=== PATIENT | female | born 1955 | race Caucasian/White ===

== ENCOUNTER 2016-08-26 08:44 | Day surgery (SDC) | payer MEDICAID ==
[2016-08-26] MEDS ORDERED: LACTATED RINGERS 900 ML IV ONE (10:04)
[2016-08-26] MEDS ORDERED: fentaNYL 250 MCG/5 ML VIAL IVP ONE (10:30)
[2016-08-26] MEDS ORDERED: MIDAZOLAM 2 MG/2 ML VIAL IVP ONE (10:30)
== END 2016-08-26 08:45 | disposition home or self-care (01) ==
PROC: 0DB58ZX Excision of Esophagus, Via Natural or Artificial Opening Endoscopic, Diagnostic (ICD-10-PCS; 2016-08-26)
PROC: 0DJD8ZZ Inspection of Lower Intestinal Tract, Via Natural or Artificial Opening Endoscopic (ICD-10-PCS; principal; 2016-08-26 09:45)
PROC: 0DB68ZX Excision of Stomach, Via Natural or Artificial Opening Endoscopic, Diagnostic (ICD-10-PCS; 2016-08-26 09:45)
DX: Z12.11 Encounter for screening for malignant neoplasm of colon (principal); K64.8 Other hemorrhoids; K57.30 Diverticulosis of large intestine without perforation or abscess without bleeding; K25.9 Gastric ulcer, unspecified as acute or chronic, without hemorrhage or perforation; K44.9 Diaphragmatic hernia without obstruction or gangrene; K20.9 Esophagitis, unspecified; K21.9 Gastro-esophageal reflux disease without esophagitis; Z88.0 Allergy status to penicillin; I10 Essential (primary) hypertension; J30.2 Other seasonal allergic rhinitis
CPT/HCPCS: 43239; 45378; 87081; J3010; J7120

== ENCOUNTER 2016-08-28 08:46 | Outpatient (CLI) | payer MEDICAID | END 2016-08-28 08:47 | disposition home or self-care (01) | DX: Z12.31 Encounter for screening mammogram for malignant neoplasm of breast (principal) ==

== ENCOUNTER 2016-09-30 08:00 | Outpatient (CLI) | payer MEDICAID | END 2016-09-30 08:01 | disposition home or self-care (01) | DX: I10 Essential (primary) hypertension (principal) ==

== ENCOUNTER 2016-12-29 12:48 | Emergency (ER) | payer MEDICAID ==
[2016-12-29 12:56] VITALS: BP 144/87
--- NOTE | 2016-12-29 16:11 | Ultrasound Report ---
EXAM: RIGHT LOWER EXTREMITY VENOUS ULTRASOUND EXAM DATE: 12/29/2016 03:24 PM. CLINICAL HISTORY: Swollen varicosity. COMPARISON: None. TECHNIQUE: Real-time sonographic vascular imaging was performed by the shape hand through the lower extremity utilizing both color-flow and Doppler spectral analysis. Multiple field support representative static linda ges were saved for review. FINDINGS: Common Femoral Vein (CFV): Normal. CFV-GSV Junction: Normal. Profunda Femoral Vein (PFV): Normal. Femoral Vein (FV) Prox: Normal. Femoral Vein (FV) Mid: Normal. Femoral Vein (FV) Dist: Normal. Popliteal Vein: Normal. Posterior Tibial Veins: Normal. Peroneal Veins: Normal. Contralateral Side CFV: Normal. Other: None. IMPRESSION: No evidence for deep venous thrombosis. [facility] Referring Provider Line: [phone] SITE ID: [id number]
--- NOTE | 2016-12-29 16:11 | Ultrasound Preliminary Report ---
Exam: US Duplex Ext Veins Right IMPRESSION: No evidence for deep venous thrombosis. [facility] SITE ID: [id number]
--- NOTE | 2016-12-29 16:13 | ED Physician Documentation ---
History of Present Illness - Stated complaint Stated Complaint: R LEG SWELLING,PAINFUL - Chief complaint Chief Complaint: Ext Problem - History obtained from History obtained from: Patient - History of Present Illness Timing: Today - Additonal information Additional information: 61-year-old female who has had some cosmetic procedures done on her lower extremity previously with some injection of varicose veins has developed a varicosity on the left medial portion of the calf that she remembers being present previously but she could not ever see blue under the skin. She states this area looks larger than it has previously and she was required to come to the emergency department for evaluation of this. Review of Systems Constitutional: denies: Fever Eyes: denies: Decreased vision Ears: denies: Ear pain Nose: denies: Congestion Throat: denies: Sore throat Respiratory: denies: Dyspnea, Cough GI: denies: Vomiting Skin: denies: Rash Musculoskeletal: reports: Extremity pain, Extremity swelling. 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 - Present Medications Home Medications: Ambulatory Orders Medication Instructions Recorded Confirmed 5htp 1 tab PO DAILY PRN 08/23/16 12/29/16 Acetaminophen [Tylenol Extra 2 tab PO Q4H PRN 08/23/16 12/29/16 Strength] Ascorbic Acid [Vitamin C] 1 tab PO DAILY 08/23/16 12/29/16 Aspirin 1 tab PO DAILY 08/23/16 12/29/16 Aspirin 1 tab PO DAILY PRN 08/23/16 12/29/16 Atenolol 12.5 mg PO DAILY 08/23/16 12/29/16 Cyanocobalamin (Vitamin B-12) 1 tab PO DAILY 08/23/16 12/29/16 [Vitamin B12] Ibuprofen [Motrin] 600 mg PO Q6H PRN 08/23/16 12/29/16 Triamterene/Hydrochlorothiazid 1 tab PO DAILY 08/23/16 12/29/16 [Triamterene-Hctz 75-50 mg Tab] raNITIdine [Zantac] 150 mg PO DAILY 08/23/16 12/29/16 - Allergies Allergies/Adverse Reactions: Allergies Allergy/AdvReac Type Severity Reaction Status Date / Time amlodipine Allergy Edema Verified 08/26/16 09:07 lisinopril Allergy Unknown Verified 08/26/16 09:07 Penicillins Allergy Rash Verified 08/23/16 13:31 - Social History Does the pt smoke?: No Smoking Status: Never smoker Does the pt drink ETOH?: Yes ETOH Use: Wine, Beer, Liquor Does the pt have substance abuse?: No - Immunizations Immunizations are current?: Yes - POLST Patient has POLST: No PD ED PE NORMAL - Vitals Vital signs reviewed: Yes (hypertensive) - General General: Alert and oriented X 3, No acute distress, Well developed/nourished - HEENT HEENT: Atraumatic, PERRL, EOMI - Neck Neck: Supple, no meningeal sign - Respiratory Respiratory: No respiratory distress - Derm Derm: Normal color, Warm and dry, No rash - Extremities Extremities: No deformity, Other (There is a varicosity to the right calf medially and this are is mildly tender as is the bakers cyst. She has ? of swelling to the right calf but I am not able to discern this. distal n/v intact. ) - Neuro Neuro: No motor deficit, No sensory deficit - Psych Psych: Normal mood, Normal affect Results - Vitals Vitals: Vital Signs - 24 hr 12/29/16 12:54 Temperature 36.5 C Heart Rate 69 Respiratory 16 Rate Blood Pressure 144/87 H O2 Saturation 100 Oxygen O2 Source Room air - Rads (name of study) Duplex veins right Radiology: Prelim report reviewed (Impression: No evidence for deep venous thrombosis.), EMP read indepedently, See rad report PD MEDICAL DECISION MAKING - ED course Complexity details: reviewed results, re-evaluated patient, considered differential, d/w patient ED course: 61-year-old female with swelling to the right calf and posterior pain has a varicosity that is mildly symptomatic. She does not have DVT. Departure - Departure Disposition: 01 Home, Self Care Clinical Impression: Varicose vein of leg Condition: Stable Instructions: ED Veins Varicose Follow-Up: Steve Guthrie PA-C [Primary Care Provider] - Discharge Date/Time: 12/29/16 16:21
== END 2016-12-29 16:21 | disposition home or self-care (01) ==
LOC: ED 12:48
DX: I83.91 Asymptomatic varicose veins of right lower extremity (principal); I10 Essential (primary) hypertension; K21.9 Gastro-esophageal reflux disease without esophagitis; Z79.82 Long term (current) use of aspirin
CPT/HCPCS: 99283

== ENCOUNTER 2017-09-05 07:42 | Outpatient (CLI) | payer MEDICAID ==
[2017-09-05 13:04] LABS: BASOPHILS # (AUTO) 0.1 10^3/uL (0.0-0.1); BASOPHILS % (AUTO) 0.9 %; EOSINOPHILS # (AUTO) 0.3 10^3/uL (0.0-0.7); EOSINOPHILS % (AUTO) 5.6 %; HGB - HEMOGLOBIN 14.4 g/dL (12.0-16.0); LYMPHOCYTES # (AUTO) 1.9 10^3/uL (1.5-3.5); LYMPHOCYTES % (AUTO) 34.7 %; MEAN CORPUSCULAR HEMOGLOBIN 30.8 pg (27.0-31.0); MEAN CORPUSCULAR HGB CONC 34.2 g/dL (32.0-36.0); MEAN CORPUSCULAR VOLUME 90.3 fL (81.0-99.0); MEAN PLATELET VOLUME 8.6 fL (7.9-10.8); MONOCYTES # (AUTO) 0.6 10^3/uL (0.0-1.0); MONOCYTES % (AUTO) 10.4 %; NEUTROPHILS # (AUTO) 2.7 10^3/uL (1.5-6.6); NEUTROPHILS % (AUTO) 48.4 %; PLT - PLATELET COUNT 299 10^3/uL (130-450); RED BLOOD COUNT 4.67 10^6/uL (4.20-5.40); RED CELL DISTRIBUTION WIDTH 13.6 % (12.0-15.0); WHITE BLOOD COUNT 5.6 x10^3/uL (4.8-10.8)
[2017-09-05 13:38] LABS: THYROID STIMULATING HORMONE 1.79 uIU/mL (0.34-5.60)
[2017-09-05 13:40] LABS: FREE T4 (FREE THYROXINE) 0.81 ng/dL (0.58-1.64)
[2017-09-05 13:46] LABS: ALBUMIN 4.4 g/dL (3.2-5.5); ALBUMIN/GLOBULIN RATIO 1.4 (1.0-2.2); ALKALINE PHOSPHATASE 47 IU/L (42-121); ALT ALANINE AMINOTRANSFERASE 25 IU/L (10-60); AST ASPARTATE AMINOTRANSFERASE 24 IU/L (10-42); BILIRUBIN,TOTAL 0.8 mg/dL (0.2-1.0); BUN - BLOOD UREA NITROGEN 20 mg/dL (6-20); CALCIUM 9.4 mg/dL (8.5-10.3); CARBON DIOXIDE - CO2 27 mmol/L (21-32); CHLORIDE 100 mmol/L (101-111); CHOL/HDL RATIO 2.7 (<4.4); CHOLESTEROL 161 mg/dL; CREATININE 0.7 mg/dL (0.4-1.0); GFR - MDRD 86 (>89); GLUCOSE 92 mg/dL (70-100); HDL CHOLESTEROL 59 mg/dL; LDL CHOLESTEROL,CALCULATED 81 mg/dL; LDL/HDL RATIO 1.4 (<4.4); SODIUM 136 mmol/L (135-145); TOTAL PROTEIN 7.5 g/dL (6.7-8.2); VLDL CHOLESTEROL 21 mg/dL
== END 2017-09-05 07:43 | disposition home or self-care (01) ==
LOC: LAB.N 07:42
PROVIDERS: ATTEND Family Medicine
DX: I10 Essential (primary) hypertension (principal); E03.9 Hypothyroidism, unspecified
CPT/HCPCS: 36415; 80053; 80061; 83721; 84439; 84443; 85025

== ENCOUNTER 2017-10-01 08:00 | Outpatient (CLI) | payer MEDICAID ==
[2017-10-01 19:29] LABS: BILIRUBIN,URINE NEGATIVE (NEGATIVE); GLUCOSE, URINE (UA) NEGATIVE (NEGATIVE); KETONES,URINE (UA) NEGATIVE (NEGATIVE); LEUKOCYTE ESTERASE, URINE SMALL (NEGATIVE); NITRITE,URINE NEGATIVE (NEGATIVE); OCCULT BLOOD,URINE NEGATIVE (NEGATIVE); PH,URINE 6.5 PH (5.0-7.5); PROTEIN,URINE NEGATIVE (NEGATIVE); UROBILINOGEN,URINE 0.2 (NORMAL) E.U./dL (NORMAL)
[2017-10-01 19:35] LABS: CLARITY,URINE CLEAR (CLEAR)
[2017-10-01 19:48] LABS: BACTERIA,URINE None Seen /HPF (None Seen); RBC,URINE None Seen /HPF (0-5); SQUAMOUS EPITHELIAL CELL,UR FEW Squamous (<= Few)
== END 2017-10-01 08:01 | disposition home or self-care (01) ==
LOC: LAB.R 08:00
PROVIDERS: ATTEND Family Medicine
DX: N10 Acute pyelonephritis (principal)
CPT/HCPCS: 81001; 81003; 87086

== ENCOUNTER 2017-10-25 14:53 | Emergency (ER) | payer MEDICAID ==
[2017-10-25 15:01] VITALS: BP 159/101
--- NOTE | 2017-10-25 15:02 | ED Physician Documentation ---
PD HPI NECK PAIN - Stated complaint Stated Complaint: NECK PX/SHLD PX - Chief complaint Chief Complaint: Back Pain - History obtained from History obtained from: Patient - History of Present Illness Timing - onset: Yesterday (awoke with shoulder pain that has worsened into today. 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 Some numbness in the area at times too.). No: Fever, Weakness Similar symptoms before: Diagnosis (muscle strain with nerve irritation.) Recently seen: Not recently seen Review of Systems Constitutional: denies: Fever, Chills Skin: denies: Rash, Lesions Neurologic: reports: Numbness. 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 - Present Medications Home Medications: Ambulatory Orders Medication Instructions Recorded Confirmed 5htp 1 tab PO DAILY PRN 08/23/16 12/29/16 Acetaminophen [Tylenol Extra 2 tab PO Q4H PRN 08/23/16 12/29/16 Strength] Ascorbic Acid [Vitamin C] 1 tab PO DAILY 08/23/16 12/29/16 Aspirin 1 tab PO DAILY PRN 08/23/16 12/29/16 Cyanocobalamin (Vitamin B-12) 1 tab PO DAILY 08/23/16 12/29/16 [Vitamin B12] Ibuprofen [Motrin] 600 mg PO Q6H PRN 08/23/16 12/29/16 Triamterene/Hydrochlorothiazid 1 tab PO DAILY 08/23/16 12/29/16 [Triamterene-Hctz 75-50 mg Tab] raNITIdine [Zantac] 150 mg PO DAILY 08/23/16 12/29/16 Dexamethasone [Decadron] 4 mg PO DAILY #5 tablet 10/25/17 Naproxen 375 mg PO BID #20 tablet 10/25/17 Oxycodone HCl/Acetaminophen 1 each PO Q6H PRN #20 tablet 10/25/17 [Percocet 5-325 mg Tablet] Tizanidine HCl 4 mg PO TID PRN #25 capsule 10/25/17 - Allergies Allergies/Adverse Reactions: Allergies Allergy/AdvReac Type Severity Reaction Status Date / Time amlodipine Allergy Edema Verified 08/26/16 09:07 lisinopril Allergy Unknown Verified 08/26/16 09:07 Penicillins Allergy Rash Verified 08/23/16 13:31 - Social History Does the pt smoke?: No Smoking Status: Never smoker Does the pt drink ETOH?: Yes Does the pt have substance abuse?: No - Immunizations Immunizations are current?: Yes - POLST Patient has POLST: No PD ED PE NORMAL - Vitals Vital signs reviewed: Yes - General General: Alert and oriented X 3, Well developed/nourished, Other (appears uncomfortable with shoulder pain) - Neck Neck: Supple, no meningeal sign, No adenopathy, Other (tender right suprascapular area in muscles. No rash nor sores. Shoulder itself without tenderness. ) - Derm Derm: Normal color, Warm and dry - Extremities Extremities: Other (right arm with good pulses, color and cap refill. Normal sensation and motor, but says right thumb and radial arm hurts c/w C6 area. ) Results - Vitals Vitals: Vital Signs - 24 hr 10/25/17 10/25/17 14:57 15:46 Temperature 36.1 C L Heart Rate 90 76 Respiratory 18 15 Rate Blood Pressure 159/101 H O2 Saturation 94 Oxygen O2 Source Room air PD MEDICAL DECISION MAKING - ED course Complexity details: considered differential (having radicular symptoms of pain and numbness right arm in C6 area but is tender in shoulder muscles, so I think it is muscular impingement. ), d/w patient Departure - Departure Disposition: 01 Home, Self Care Clinical Impression: Nerve compression Acute strain of neck muscle Qualifiers: Encounter type: initial encounter Qualified Code(s): S16.1XXA - Strain of muscle, fascia and tendon at neck level, initial encounter Condition: Stable Record reviewed to determine appropriate education?: Yes Instructions: ED Neck Pain No Trauma Prescriptions: Dexamethasone [Decadron] 4 mg PO DAILY #5 tablet Naproxen 375 mg PO BID #20 tablet Oxycodone HCl/Acetaminophen [Percocet 5-325 mg Tablet] 1 each PO Q6H PRN #20 tablet PRN Reason: Pain Tizanidine HCl 4 mg PO TID PRN #25 capsule PRN Reason: Spasms Comments: Heat and gentle stretching for the neck and shoulder muscles. Physical treatment such as massage and chiropractic are good. Minimize heavy lifting, push pull, overhead reaching and repetitive motion with the shoulder for several days if he can. Use naproxen and Decadron different types of anti- inflammatories over the next 5 or 6 days as directed. Add tizanidine muscle relaxant 3 times a day as needed for spasms and stiffness. Add Percocet if needed for worse pain. Recheck if not improving over the next several days to week. Discharge Date/Time: 10/25/17 15:47
[2017-10-25] MEDS ORDERED: oxyCOD/ACETAMIN 5 MG/325 MG TABLET PO STA (15:17)
[2017-10-25] MEDS ORDERED: KETOROLAC 60 MG/2 ML VIAL IM STA (15:17)
[2017-10-25] MEDS ORDERED: DEXAMETHASONE 10 MG/ML VIAL PO STA (15:17)
[2017-10-25] MEDS ORDERED: BUPIVACAINE 0.5% PF 30 ML VIAL SUBQ STA (15:17)
[2017-10-25] MEDS ORDERED: METHOCARBAMOL 500 MG TABLET PO STA (15:18)
[2017-10-25] MEDS ORDERED: CHERRY SYRUP 10 ML UDC PO ONE (15:38)
== END 2017-10-25 15:47 | disposition home or self-care (01) ==
LOC: ED 14:53
DX: S16.1XXA Strain of muscle, fascia and tendon at neck level, initial encounter (principal); X58.XXXA Exposure to other specified factors, initial encounter; G58.9 Mononeuropathy, unspecified; I10 Essential (primary) hypertension; K21.9 Gastro-esophageal reflux disease without esophagitis; Z79.82 Long term (current) use of aspirin
CPT/HCPCS: 96372; 99283; A9270

== ENCOUNTER 2018-05-04 11:15 | Emergency (ER) | payer MEDICAID ==
[2018-05-04 11:33] VITALS: BP 133/88
[2018-05-04] MEDS ORDERED: DEXAMETHASONE 10 MG/ML VIAL PO STA (12:33)
[2018-05-04] MEDS ORDERED: KETOROLAC 60 MG/2 ML VIAL IM STA (12:33)
--- NOTE | 2018-05-04 12:45 | ED Physician Documentation ---
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 Occasionally radiates down the right leg. No loss of bowel or bladder control. No IV drug use. No fevers. No trauma. Worse with movement and better with rest. Has had issues with her back before. Has not taken anything for this today other than a muscle relaxant from an old injury. Review of Systems Constitutional: denies: Fever, Chills Throat: denies: Sore throat GI: reports: Vomiting (States she vomited yesterday). 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 - Present Medications Home Medications: Ambulatory Orders Medication Instructions Recorded Confirmed 5htp 1 tab PO DAILY PRN 08/23/16 05/04/18 Acetaminophen [Tylenol Extra 2 tab PO Q4H PRN 08/23/16 05/04/18 Strength] Ascorbic Acid [Vitamin C] 1 tab PO DAILY 08/23/16 05/04/18 Aspirin 1 tab PO DAILY PRN 08/23/16 05/04/18 Cyanocobalamin (Vitamin B-12) 1 tab PO DAILY 08/23/16 05/04/18 [Vitamin B12] Triamterene/Hydrochlorothiazid 1 tab PO DAILY 08/23/16 05/04/18 [Triamterene-Hctz 75-50 mg Tab] raNITIdine [Zantac] 150 mg PO DAILY 08/23/16 05/04/18 Cyclobenzaprine [Flexeril] 10 mg PO TID PRN #20 tablet 05/04/18 Meloxicam [Mobic] 15 mg PO DAILY PRN #20 tablet 05/04/18 Ondansetron Odt [Zofran] 4 mg TL Q6H PRN #10 tablet 05/04/18 predniSONE [Deltasone] 10 mg PO [id number] #42 tab 05/04/18 - Allergies Allergies/Adverse Reactions: Allergies Allergy/AdvReac Type Severity Reaction Status Date / Time amlodipine Allergy Edema Verified 08/26/16 09:07 lisinopril Allergy Unknown Verified 08/26/16 09:07 Penicillins Allergy Rash Verified 08/23/16 13:31 - Social History Does the pt smoke?: No Smoking Status: Never smoker Does the pt drink ETOH?: Yes Does the pt have substance abuse?: No - Immunizations Immunizations are current?: Yes - POLST Patient has POLST: No PD ED PE NORMAL - Vitals Vital signs reviewed: Yes - General General: Alert and oriented X 3, No acute distress - HEENT HEENT: Moist mucous membranes - Neck Neck: Supple, no meningeal sign - Back Back: Other (No midline tenderness to palpation or percussion. No step-off or deformity. Paraspinal spasm, right low lumbar as well as the right SI joint.) - Derm Derm: Warm and dry - Extremities Extremities: No deformity, No tenderness to palpate, Normal ROM s pain, Other (Normal bilateral lower extremity patellar and ankle jerk reflexes. Normal great toe extension bilaterally. no saddle anesthesia) - Neuro Neuro: Alert and oriented X 3 - Psych Psych: Normal mood, Normal affect Results - Vitals Vitals: Vital Signs - 24 hr 05/04/18 11:30 Temperature 36.7 C Heart Rate 83 Respiratory 16 Rate Blood Pressure 133/88 H O2 Saturation 98 Oxygen O2 Source Room air PD MEDICAL DECISION MAKING - ED course Complexity details: reviewed results, re-evaluated patient, considered differential (No cauda equina, no spinal epidural abscess, no fracture, no aortic dissection or evidence of aneursym rupture), d/w patient ED course: Patient is a 62-year-old female with what appears to be right-sided sciatica. Will place on steroids, NSAIDs and muscle relaxants for home. We will have her follow-up with her doctor for further care. Ambulating well in the emergency department. No acute neurological deficits. Patient counseled regarding signs and symptoms for which I believe and urgent re-evaluation would be necessary. Patient with good understanding of and agreement to plan and is comfortable going home at this time This document was made in part using voice recognition software. While efforts are made to proofread this document, sound alike and grammatical errors may occur. Departure - Departure Disposition: 01 Home, Self Care Clinical Impression: Sciatica Qualifiers: Laterality: right Qualified Code(s): M54.31 - Sciatica, right side Condition: Good Instructions: ED Sciatica Follow-Up: Reuben Magana MD [Primary Care Provider] - Within 1 week Prescriptions: Cyclobenzaprine [Flexeril] 10 mg PO TID PRN #20 tablet PRN Reason: Spasms Meloxicam [Mobic] 15 mg PO DAILY PRN #20 tablet PRN Reason: pain Ondansetron Odt [Zofran] 4 mg TL Q6H PRN #10 tablet PRN Reason: Nausea / Vomiting predniSONE [Deltasone] 10 mg PO [id number] #42 tab Comments: Return if you worsen. This should improve over the next few days. Continue to gently stretch your back.
== END 2018-05-04 12:54 | disposition home or self-care (01) ==
LOC: ED 11:15
DX: M54.31 Sciatica, right side (principal); R11.10 Vomiting, unspecified; I10 Essential (primary) hypertension; Z79.82 Long term (current) use of aspirin
CPT/HCPCS: 96372; 99283

== ENCOUNTER 2018-06-04 09:13 | Outpatient (CLI) | payer MEDICAID ==
[2018-06-04 13:55] LABS: BASOPHILS % (AUTO) 0.5 %; EOSINOPHILS # (AUTO) 0.2 10^3/uL (0.0-0.7); EOSINOPHILS % (AUTO) 3.4 %; HGB - HEMOGLOBIN 15.2 g/dL (12.0-16.0); LYMPHOCYTES # (AUTO) 1.2 10^3/uL (1.5-3.5); MEAN CORPUSCULAR HEMOGLOBIN 30.9 pg (27.0-31.0); MEAN CORPUSCULAR HGB CONC 34.9 g/dL (32.0-36.0); MEAN CORPUSCULAR VOLUME 88.6 fL (81.0-99.0); MEAN PLATELET VOLUME 8.6 fL (7.9-10.8); MONOCYTES # (AUTO) 0.5 10^3/uL (0.0-1.0); MONOCYTES % (AUTO) 10.2 %; NEUTROPHILS # (AUTO) 3.4 10^3/uL (1.5-6.6); NEUTROPHILS % (AUTO) 63.9 %; PLT - PLATELET COUNT 267 10^3/uL (130-450); RED BLOOD COUNT 4.93 10^6/uL (4.20-5.40); WHITE BLOOD COUNT 5.4 x10^3/uL (4.8-10.8)
[2018-06-04 14:23] LABS: ALBUMIN 4.4 g/dL (3.2-5.5); ALBUMIN/GLOBULIN RATIO 1.3 (1.0-2.2); ALKALINE PHOSPHATASE 73 IU/L (42-121); ALT ALANINE AMINOTRANSFERASE 20 IU/L (10-60); AST ASPARTATE AMINOTRANSFERASE 17 IU/L (10-42); BILIRUBIN,TOTAL 0.8 mg/dL (0.2-1.0); BUN - BLOOD UREA NITROGEN 18 mg/dL (6-20); CALCIUM 9.4 mg/dL (8.5-10.3); CARBON DIOXIDE - CO2 28 mmol/L (21-32); CHLORIDE 97 mmol/L (101-111); CHOL/HDL RATIO 2.6 (<4.4); CHOLESTEROL 166 mg/dL; CREATININE 0.6 mg/dL (0.4-1.0); GFR - MDRD 102 (>89); GLUCOSE 108 mg/dL (70-100); HDL CHOLESTEROL 63 mg/dL; LDL CHOLESTEROL,CALCULATED 91 mg/dL; LDL/HDL RATIO 1.4 (<4.4); SODIUM 136 mmol/L (135-145); TOTAL PROTEIN 7.8 g/dL (6.7-8.2); VLDL CHOLESTEROL 12 mg/dL
== END 2018-06-04 23:59 | disposition home or self-care (01) ==
LOC: LAB.N 09:13
PROVIDERS: ATTEND Family Medicine
DX: I10 Essential (primary) hypertension (principal); E03.9 Hypothyroidism, unspecified
CPT/HCPCS: 36415; 80053; 80061; 83721; 84443; 85025

== ENCOUNTER 2019-04-29 10:54 | Outpatient (CLI) | payer MEDICAID ==
[2019-04-29 12:35] LABS: BASOPHILS % (AUTO) 0.7 %; EOSINOPHILS # (AUTO) 0.2 10^3/uL (0.0-0.7); EOSINOPHILS % (AUTO) 3.7 %; HGB - HEMOGLOBIN 15.5 g/dL (12.0-16.0); LYMPHOCYTES # (AUTO) 1.4 10^3/uL (1.5-3.5); LYMPHOCYTES % (AUTO) 25.7 %; MEAN CORPUSCULAR HEMOGLOBIN 31.8 pg (27.0-31.0); MEAN CORPUSCULAR HGB CONC 35.1 g/dL (32.0-36.0); MEAN CORPUSCULAR VOLUME 90.8 fL (81.0-99.0); MEAN PLATELET VOLUME 10.2 fL (7.9-10.8); MONOCYTES # (AUTO) 0.6 10^3/uL (0.0-1.0); MONOCYTES % (AUTO) 10.6 %; NEUTROPHILS # (AUTO) 3.2 10^3/uL (1.5-6.6); NEUTROPHILS % (AUTO) 59.1 %; PLT - PLATELET COUNT 335 10^3/uL (130-450); RED BLOOD COUNT 4.87 10^6/uL (4.20-5.40); RED CELL DISTRIBUTION WIDTH 13.4 % (12.0-15.0); WHITE BLOOD COUNT 5.4 x10^3/uL (4.8-10.8)
[2019-04-29 13:02] LABS: HB2 TOTAL 15.5 g/dL; HEMOGLOBIN A1C 0.51 g/dL; HEMOGLOBIN A1C % 5.2 % (4.6-6.2)
[2019-04-29 13:07] LABS: ALBUMIN 4.7 g/dL (3.2-5.5); ALBUMIN/GLOBULIN RATIO 1.5 (1.0-2.2); ALKALINE PHOSPHATASE 53 IU/L (42-121); ALT ALANINE AMINOTRANSFERASE 18 IU/L (10-60); AST ASPARTATE AMINOTRANSFERASE 18 IU/L (10-42); BILIRUBIN,TOTAL 1.1 mg/dL (0.2-1.0); BUN - BLOOD UREA NITROGEN 19 mg/dL (6-20); CALCIUM 9.5 mg/dL (8.5-10.3); CARBON DIOXIDE - CO2 28 mmol/L (21-32); CHLORIDE 99 mmol/L (101-111); CHOL/HDL RATIO 2.4 (<4.4); CHOLESTEROL 201 mg/dL; CREATININE 0.5 mg/dL (0.4-1.0); GFR - MDRD 125 (>89); GLUCOSE 103 mg/dL (70-100); HDL CHOLESTEROL 85 mg/dL; LDL CHOLESTEROL,CALCULATED 106 mg/dL; LDL/HDL RATIO 1.2 (<4.4); SODIUM 136 mmol/L (135-145); TOTAL PROTEIN 7.8 g/dL (6.7-8.2); VLDL CHOLESTEROL 10 mg/dL
== END 2019-04-29 10:55 | disposition home or self-care (01) ==
LOC: LAB.N 10:54
PROVIDERS: ATTEND Family Medicine
DX: I10 Essential (primary) hypertension (principal); Z13.1 Encounter for screening for diabetes mellitus
CPT/HCPCS: 36415; 80053; 80061; 83036; 83721; 84443; 85025

== ENCOUNTER 2019-04-30 09:20 | Outpatient (CLI) | payer MEDICAID ==
--- NOTE | 2019-04-30 14:17 | Mammography Report ---
Reason: ROUTINE MAMMO Procedure Date: 04/30/2019 Accession Number: [id number] / [id number] Procedure: MGN - Screening Mammo Dig Bilat CPT Code: Final Report FULL RESULT: EXAM: Screening Mammo Dig Bilat DATE: 04/30/2019 9:43 AM CLINICAL HISTORY: Routine screening TECHNIQUE: (B) - Bilateral CC and MLO views were obtained. COMPARISON: 08/28/2016, 06/17/2014, 01/08/2011 PARENCHYMAL PATTERN: (A) - The breasts demonstrate scattered fibroglandular densities bilaterally. FINDINGS: No significant interval change. There are no suspicious masses, calcifications, or areas of distortion. IMPRESSION: Negative examination. BI-RADS category 1. RECOMMENDATION: (ANNUAL) - Recommend routine annual screening mammography. BI-RADS CATEGORY: (1) - Negative. STANDARD QUALIFYING STATEMENTS: 1. This examination was not reviewed with the aid of Computer-Aided Detection (CAD). 2. A negative or benign imaging report should not preclude biopsy if clinically suspicious findings are present. 3. Dense breasts may obscure an underlying neoplasm. 4. This examination was reviewed without the aid of 3D breast imaging (tomosynthesis).
== END 2019-04-30 09:21 | disposition home or self-care (01) ==
LOC: DI.N 09:20
PROVIDERS: ATTEND Family Medicine
DX: Z12.31 Encounter for screening mammogram for malignant neoplasm of breast (principal)
CPT/HCPCS: 77067

== ENCOUNTER 2020-07-31 11:10 | Outpatient (CLI) | payer MEDICAID ==
[2020-07-31 17:41] LABS: BASOPHILS % (AUTO) 0.5 %; EOSINOPHILS # (AUTO) 0.2 10^3/uL (0.0-0.7); EOSINOPHILS % (AUTO) 3.6 %; HGB - HEMOGLOBIN 15.1 g/dL (12.0-16.0); LYMPHOCYTES # (AUTO) 1.8 10^3/uL (1.5-3.5); LYMPHOCYTES % (AUTO) 28.1 %; MEAN CORPUSCULAR HEMOGLOBIN 31.1 pg (27.0-31.0); MEAN CORPUSCULAR HGB CONC 33.3 g/dL (32.0-36.0); MEAN CORPUSCULAR VOLUME 93.4 fL (81.0-99.0); MEAN PLATELET VOLUME 10.5 fL (7.9-10.8); MONOCYTES # (AUTO) 0.7 10^3/uL (0.0-1.0); MONOCYTES % (AUTO) 11.3 %; NEUTROPHILS # (AUTO) 3.6 10^3/uL (1.5-6.6); NEUTROPHILS % (AUTO) 56.2 %; PLT - PLATELET COUNT 365 10^3/uL (130-450); RED BLOOD COUNT 4.86 10^6/uL (4.20-5.40); RED CELL DISTRIBUTION WIDTH 13.6 % (12.0-15.0); WHITE BLOOD COUNT 6.5 x10^3/uL (4.8-10.8)
[2020-07-31 18:00] LABS: ALBUMIN 4.8 g/dL (3.2-5.5); ALBUMIN/GLOBULIN RATIO 1.7 (1.0-2.2); ALKALINE PHOSPHATASE 64 IU/L (42-121); ALT ALANINE AMINOTRANSFERASE 21 IU/L (10-60); AST ASPARTATE AMINOTRANSFERASE 20 IU/L (10-42); BILIRUBIN,TOTAL 0.8 mg/dL (0.2-1.0); BUN - BLOOD UREA NITROGEN 20 mg/dL (6-20); CARBON DIOXIDE - CO2 28 mmol/L (21-32); CHLORIDE 99 mmol/L (101-111); CHOLESTEROL 195 mg/dL; CREATININE 0.7 mg/dL (0.4-1.0); GLUCOSE 95 mg/dL (70-100); HDL CHOLESTEROL 96 mg/dL; LDL CHOLESTEROL,CALCULATED 88 mg/dL; LDL/HDL RATIO 0.9 (<4.4); TOTAL PROTEIN 7.7 g/dL (6.7-8.2); VLDL CHOLESTEROL 11 mg/dL
== END 2020-07-31 11:11 | disposition home or self-care (01) ==
LOC: LAB.N 11:10
PROVIDERS: ATTEND Physician Assistant Medical
DX: Z00.00 Encounter for general adult medical examination without abnormal findings (principal)
CPT/HCPCS: 36415; 80053; 80061; 83721; 84443; 85025

== ENCOUNTER 2020-08-15 09:51 | Outpatient (CLI) | payer MEDICAID ==
--- NOTE | 2020-08-15 11:41 | Ultrasound Report ---
PROCEDURE: Aorta Screening INDICATIONS: Epigastric abdominal pain TECHNIQUE: Real time scanning was performed of the aorta and iliac arteries, with image documentatio n. COMPARISON: None FINDINGS: Aorta: Proximal aortic diameter measures 2.7 cm. Mid-aorta measures 1.8 cm. Distal aortic diameter is 1.6 cm. Iliac arteries: Right common iliac artery measures 1.2 cm. Left common iliac artery measures 1.4 cm . IMPRESSION: No abdominal aortic or iliac artery aneurysm. Reviewed by: Christophe Weber MD on 08/15/2020 11:39 AM PST Approved by: Christophe Weber MD on 08/15/2020 11:39 AM PST Station ID: [id number]
== END 2020-08-15 09:52 | disposition home or self-care (01) ==
LOC: DI 09:51
PROVIDERS: ATTEND Physician Assistant Medical
DX: R10.13 Epigastric pain (principal); Z82.49 Family history of ischemic heart disease and other diseases of the circulatory system

== ENCOUNTER 2020-09-20 08:05 | Outpatient (CLI) | payer MEDICAID | END 2020-09-20 08:06 | disposition home or self-care (01) | LOC: DI 08:05 | PROVIDERS: ATTEND Physician Assistant Medical | DX: R10.13 Epigastric pain (principal); I08.0 Rheumatic disorders of both mitral and aortic valves | CPT/HCPCS: 93306 ==

== ENCOUNTER 2020-10-11 10:42 | Emergency (ER) | payer MEDICAID ==
--- NOTE | 2020-10-11 10:52 | ED Physician Documentation ---
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 - Present Medications Home Medications: Ambulatory Orders Medication Instructions Recorded Confirmed 5htp 1 tab PO DAILY PRN 08/23/16 05/04/18 Acetaminophen [Tylenol Extra 2 tab PO Q4H PRN 08/23/16 05/04/18 Strength] Ascorbic Acid [Vitamin C] 1 tab PO DAILY 08/23/16 05/04/18 Aspirin 1 tab PO DAILY PRN 08/23/16 05/04/18 Cyanocobalamin (Vitamin B-12) 1 tab PO DAILY 08/23/16 05/04/18 [Vitamin B12] Triamterene/Hydrochlorothiazid 1 tab PO DAILY 08/23/16 05/04/18 [Triamterene-Hctz 75-50 mg Tab] raNITIdine [Zantac] 150 mg PO DAILY 08/23/16 05/04/18 Cyclobenzaprine [Flexeril] 10 mg PO TID PRN #20 tablet 05/04/18 Meloxicam [Mobic] 15 mg PO DAILY PRN #20 tablet 05/04/18 Ondansetron Odt [Zofran] 4 mg TL Q6H PRN #10 tablet 05/04/18 predniSONE [Deltasone] 10 mg PO [id number] #42 tab 05/04/18 - Allergies Allergies/Adverse Reactions: Allergies Allergy/AdvReac Type Severity Reaction Status Date / Time amlodipine Allergy Edema Verified 10/11/20 10:51 lisinopril Allergy Unknown Verified 10/11/20 10:51 Penicillins Allergy Rash Verified 10/11/20 10:51 - Social History Does the pt smoke?: No Smoking Status: Never smoker Does the pt drink ETOH?: Yes Does the pt have substance abuse?: No - Immunizations Immunizations are current?: Yes - POLST Patient has POLST: No Results - Vitals Vitals: Oxygen O2 Source Room air
--- OUTSIDE RECORDS SUMMARY | 2020-10-11 11:04 | EXTERNAL MEDICAL SUMMARY RPT | Continuity of Care Document ---
:1955 Demographics Phone Unavailable Preferred Language Unknown Marital Status Unknown Congregational Affiliation Unknown Race Unknown Ethnic Group Unknown Author Organization [facility] Address [address] [id number] Phone Social History date description facility [id number]
[2020-10-11 11:05] LABS: BASOPHILS % (AUTO) 0.8 %; EOSINOPHILS # (AUTO) 0.2 10^3/uL (0.0-0.7); EOSINOPHILS % (AUTO) 3.8 %; HCT - HEMATOCRIT 41.4 % (37.0-47.0); HGB - HEMOGLOBIN 14.2 g/dL (12.0-16.0); LYMPHOCYTES # (AUTO) 1.6 10^3/uL (1.5-3.5); LYMPHOCYTES % (AUTO) 30.6 %; MEAN CORPUSCULAR HEMOGLOBIN 30.9 pg (27.0-31.0); MEAN CORPUSCULAR HGB CONC 34.3 g/dL (32.0-36.0); MEAN CORPUSCULAR VOLUME 90.2 fL (81.0-99.0); MEAN PLATELET VOLUME 9.5 fL (7.9-10.8); MONOCYTES # (AUTO) 0.6 10^3/uL (0.0-1.0); MONOCYTES % (AUTO) 11.7 %; NEUTROPHILS # (AUTO) 2.8 10^3/uL (1.5-6.6); NEUTROPHILS % (AUTO) 53.1 %; PLT - PLATELET COUNT 302 10^3/uL (130-450); RED BLOOD COUNT 4.59 10^6/uL (4.20-5.40); RED CELL DISTRIBUTION WIDTH 13.2 % (12.0-15.0); WHITE BLOOD COUNT 5.3 x10^3/uL (4.8-10.8)
--- NOTE | 2020-10-11 11:14 | ED Physician Documentation ---
PD HPI CHEST PAIN - Stated complaint Stated Complaint: NUMBNESS IN L ARM/SENT BY - Chief complaint Chief Complaint: Cardiac - History obtained from History obtained from: Patient - History of Present Illness Timing - onset: How many weeks ago (1) Timing - onset during: Rest, Light activity Timing - duration: Weeks (1) Timing - details: Gradual onset, Still present Quality: Pressure, Tightness Location: Substernal Associated symptoms: Shortness of air, Cough (mild). No: Nausea, Vomiting, General Weakness, Palpitations Similar symptoms before: Has not had sx before Recently seen: Clinic (had been to PCP about the dyspnea and had outpt ECHO done that showed aortic aneurysm. She is scheduled for chest CT next week and has cardiology appt for followup on this in December. She has continued with the dyspnea and chest pressure on activity. She is concerned about the aneurysm.) Review of Systems Constitutional: denies: Fever, Chills Nose: denies: Rhinorrhea / runny nose, Congestion Throat: denies: Sore throat Cardiac: reports: Chest pain / pressure. 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 - Present Medications Home Medications: Ambulatory Orders Medication Instructions Recorded Confirmed 5htp 1 tab PO DAILY PRN 08/23/16 10/11/20 Acetaminophen [Tylenol Extra 2 tab PO Q4H PRN 08/23/16 10/11/20 Strength] Ascorbic Acid [Vitamin C] 1 tab PO DAILY 08/23/16 10/11/20 Aspirin 1 tab PO DAILY PRN 08/23/16 10/11/20 Cyanocobalamin (Vitamin B-12) 1 tab PO DAILY 08/23/16 10/11/20 [Vitamin B12] Triamterene/Hydrochlorothiazid 1 tab PO DAILY 08/23/16 10/11/20 [Triamterene-Hctz 75-50 mg Tab] Cyclobenzaprine [Flexeril] 10 mg PO TID PRN #20 tablet 11/05/18 04/14/21 Albuterol Sulf [Ventolin Hfa 2 puffs INH TID PRN #1 inhaler 10/11/20 Inhaler] Famotidine [Pepcid] 1 tab PO BID 10/11/20 10/11/20 Valsartan [Diovan] 160 mg PO BID 10/11/20 10/11/20 - Allergies Allergies/Adverse Reactions: Allergies Allergy/AdvReac Type Severity Reaction Status Date / Time amlodipine Allergy Edema Verified 10/11/20 10:51 lisinopril Allergy Unknown Verified 10/11/20 10:51 Penicillins Allergy Rash Verified 10/11/20 10:51 - Social History Does the pt smoke?: No Smoking Status: Never smoker Does the pt drink ETOH?: Yes Does the pt have substance abuse?: No - Immunizations Immunizations are current?: Yes - POLST Patient has POLST: No PD ED PE NORMAL - Vitals Vital signs reviewed: Yes - General General: Alert and oriented X 3, No acute distress, Well developed/nourished - HEENT HEENT: Ears normal, Pharynx benign - Neck Neck: Supple, no meningeal sign, No adenopathy - Cardiac Cardiac: RRR, No murmur, No rub - Respiratory Respiratory: Clear bilaterally - Abdomen Abdomen: Soft, Non tender, Non distended - Back Back: No CVA TTP - Derm Derm: Normal color, Warm and dry - Extremities Extremities: No tenderness to palpate, Normal ROM s pain, No edema, No calf tenderness / cord - Neuro Neuro: Alert and oriented X 3, No motor deficit, Normal speech Eye Opening: Spontaneous Motor: Obeys Commands Verbal: Oriented GCS Score: 15 Results - Vitals Vitals: Vital Signs - 24 hr 10/11/20 10/11/20 10/11/20 10:51 10:54 11:00 Temperature 36.4 C L Heart Rate 68 66 Respiratory 18 15 Rate Blood Pressure 153/77 H 150/85 H Blood Pressure 150/85 H [Left] O2 Saturation 99 97 10/11/20 10/11/20 10/11/20 11:24 12:13 12:30 Temperature Heart Rate 61 54 L 56 L Respiratory 11 L 16 16 Rate Blood Pressure 138/76 H 154/87 H 142/83 H Blood Pressure [Left] O2 Saturation 98 96 100 10/11/20 10/11/20 10/11/20 12:38 13:00 13:30 Temperature 36.6 C Heart Rate 60 62 Respiratory 20 14 Rate Blood Pressure 134/76 H 135/93 H Blood Pressure [Left] O2 Saturation 97 98 Oxygen O2 Source Room air - Labs Labs: Laboratory Tests 10/11/20 10/11/20 10/11/20 10:50 10:50 10:50 WBC 5.3 RBC 4.59 Hgb 14.2 Hct 41.4 MCV 90.2 MCH 30.9 MCHC 34.3 RDW 13.2 Plt Count 302 MPV 9.5 Neut # (Auto) 2.8 Lymph # (Auto) 1.6 Blanco # (Auto) 0.6 Eos # (Auto) 0.2 Baso # (Auto) 0.0 Absolute Nucleated RBC 0.00 Nucleated RBC % 0.0 ESR D-Dimer Sodium 140 Potassium 4.1 Chloride 104 Carbon Dioxide 28 Anion Gap 8.0 BUN 17 Creatinine 0.6 Estimated GFR (MDRD) 101 Glucose 93 Calcium 9.9 Magnesium Total Bilirubin 0.9 AST 15 ALT 15 Alkaline Phosphatase 53 Troponin I High Sens 5.8 B-Natriuretic Peptide Total Protein 7.4 Albumin 4.6 Globulin 2.8 Albumin/Globulin Ratio 1.6 Lipase 33 10/11/20 10/11/20 10/11/20 10:50 10:50 10:50 WBC RBC Hgb Hct MCV MCH MCHC RDW Plt Count MPV Neut # (Auto) Lymph # (Auto) Blanco # (Auto) Eos # (Auto) Baso # (Auto) Absolute Nucleated RBC Nucleated RBC % ESR 8 D-Dimer 202.5 Sodium Potassium Chloride Carbon Dioxide Anion Gap BUN Creatinine Estimated GFR (MDRD) Glucose Calcium Magnesium 2.0 Total Bilirubin AST ALT Alkaline Phosphatase Troponin I High Sens B-Natriuretic Peptide Total Protein Albumin Globulin Albumin/Globulin Ratio Lipase 10/11/20 10:50 WBC RBC Hgb Hct MCV MCH MCHC RDW Plt Count MPV Neut # (Auto) Lymph # (Auto) Blanco # (Auto) Eos # (Auto) Baso # (Auto) Absolute Nucleated RBC Nucleated RBC % ESR D-Dimer Sodium Potassium Chloride Carbon Dioxide Anion Gap BUN Creatinine Estimated GFR (MDRD) Glucose Calcium Magnesium Total Bilirubin AST ALT Alkaline Phosphatase Troponin I High Sens B-Natriuretic Peptide 64 Total Protein Albumin Globulin Albumin/Globulin Ratio Lipase PD MEDICAL DECISION MAKING - ED course Complexity details: reviewed results, re-evaluated patient, considered differential (She has been having some chest fullness and pressure feeling with some feeling of dyspnea. Work-up with echocardiogram and x-ray showed a thoracic aneurysm at 4.6 cm. She was scheduled for a CT of the chest to further evaluate. She has had increased discomfort chest and now numbness in arm left.), d/w patient ED course: She had not had the aneurysm explained nor the implications (that it is only modeerate size and will likely be vfollowed at 6 month intervals or such, and does not restrict her activity,etc at this point.) CT done and showed no acute process such as dissection, leaking. Departure - Departure Disposition: 01 Home, Self Care Clinical Impression: Chest discomfort, Thoracic ascending aortic aneurysm GERD (gastroesophageal reflux disease) Qualifiers: Esophagitis presence: esophagitis presence not specified Qualified Code(s): K21.9 - Gastro-esophageal reflux disease without esophagitis Clinical Impression: (Ruled Out): Myocardial infarction Condition: Stable Record reviewed to determine appropriate education?: Yes Instructions: ED Chest Pain Atypical Unkn Cause Follow-Up: Sarah Park PA-C [Primary Care Provider] - Prescriptions: Albuterol Sulf [Ventolin Hfa Inhaler] 2 puffs INH TID PRN #1 inhaler PRN Reason: Shortness Of Air/Wheezing Comments: Your recent echocardiogram in conjunction with your CT of the chest today show there is a medium sized aneurysm in the thoracic aorta which measures 4.6 cm by ultrasound and 4.[address] So pretty similar sizing. Normal size in that area would be up to 4 cm and typically these are not considered concerning until at least over 5.5 cm. There is no signs of dissection or leakage from it based on your scan today. 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 Typically they will repeat the ultrasound at intervals such as 6 months or so to ensure its not increasing in size over the timeframe of 6 months to a year intervals. Your EKG and blood tests are also normal, not showing any signs of heart failure, heart attack, blood clots, lung tumors or pneumonia. Your chest discomfort may be coming from allergies and inflammation of the airways causing some tightness. Other consideration would be reflux with esophagitis. You could try an inhaler twice daily or prior to activity and see if that helps. Also consider adding some antacids such as Maalox or Mylanta twice daily in conjunction with your current famotidine. Follow-up with your primary care. Discharge Date/Time: 10/11/20 14:00
[2020-10-11] MEDS ORDERED: SODIUM CHLORIDE 0.9% 1,000 ML IV STA (11:19)
[2020-10-11] MEDS ORDERED: IOPAMIDOL-300 100 ML VIAL ONE (11:21)
[2020-10-11 11:25] LABS: ALBUMIN 4.6 g/dL (3.2-5.5); ALBUMIN/GLOBULIN RATIO 1.6 (1.0-2.2); BILIRUBIN,TOTAL 0.9 mg/dL (0.2-1.0); CALCIUM 9.9 mg/dL (8.5-10.3); CREATININE 0.6 mg/dL (0.4-1.0); POTASSIUM 4.1 mmol/L (3.5-5.0); TOTAL PROTEIN 7.4 g/dL (6.7-8.2)
--- NOTE | 2020-10-11 11:34 | XRAY Report ---
PROCEDURE: Chest 1 View X-Ray INDICATIONS: Chest Pain TECHNIQUE: One view of the chest was acquired. COMPARISON: FINDINGS: Surgical changes and devices: None. Lungs and pleura: No pleural effusions or pneumothorax. Lungs are clear. Mediastinum: Mediastinal contours appear normal. Heart size is normal. Bones and chest wall: No suspicious bony lesions. Overlying soft tissues appear unremarkable. IMPRESSION: Normal for age, source of chest pain is not seen. Reviewed by: Benson Duvall MD on 10/11/2020 11:33 AM PDT Approved by: Benson Duvall MD on 10/11/2020 11:33 AM PDT Station ID: [id number]
--- NOTE | 2020-10-11 12:57 | CT Report ---
PROCEDURE: ANGIO CHEST W/WO INDICATIONS: TAA 4.6 cm on ECHO; left chest pain; eval aorta TECHNIQUE: After the administration of intravenous contrast, 2 mm thick sections acquired from the pulmonary api rito to the posterior costophrenic angles. 3-dimensional maximum intensity projection (MIP) coronal a nd sagittal reformats were then acquired through the thorax. For radiation dose reduction, the follow ing was used: automated exposure control, adjustment of mA and/or kV according to patient size. COMPARISON: Chest radiograph on the same day. Cardiac echo study dated 09/20/2020 FINDINGS: Image quality: Excellent. Thoracic aorta: Ascending thoracic aorta measures up to 4.4 cm in largest AP diameter at the level of main pulmonary artery bifurcation. Descending thoracic aorta measures up to 2.8 cm in largest AP tanja meter. There is no thoracic aortic dissection. Visualized portion of upper abdominal aorta is normal in size. Lungs and pleura: Lungs are clear. Mild scattered scarring/atelectasis in posterior lateral periphe ry of bilateral lung owens are seen. No pleural effusions or pneumothorax. Central and peripheral a irways are patent. Mediastinum: Heart size is mildly enlarged, without pericardial effusion. Prominent mediastinal lymp h nodes are seen measures up to 1.5 cm in prevascular space, 1.5 cm in AP window, and up to 1.1 cm in size in right paratracheal space. Pulmonary arteries are normal in size. Mild atherosclerotic diseas e is seen. Esophagus is normal in caliber, without hiatal hernia. Bones and chest wall: No suspicious bony lesions. Ribs and thoracic spine appear intact throughout. Asymmetrically enlarged right thyroid lobe is seen. No discrete thyroid lesion is seen. No axillary or supraclavicular adenopathy. Abdomen: Visualized upper abdominal solid organs appear normal in the early arterial phase of enhanc ement. IMPRESSION: 1. Ascending thoracic aortic aneurysm measures up to 4.4 cm in largest AP diameter. Normal ascending thoracic aortic size. Normal size of visualized portion of the abdominal aorta. No aortic dissection. 2. Nonspecific enlarged mediastinal lymph nodes. Mild cardiomegaly, no pericardial effusion. 3. Scattered atelectasis in periphery of bilateral lung owens. No focal infiltrate or pneumothorax. No pleural effusion. Airway is patent. 4. Enlarged right thyroid lobe which may represent thyroid goiter. Reviewed by: Salvador Hurley MD on 10/11/2020 11:56 AM AKDT Approved by: Salvador Hurley MD on 10/11/2020 11:56 AM EMILIA Station ID: [id number]
[2020-10-11] MEDS ORDERED: IOPAMIDOL-300 100 ML VIAL IVP ONE (13:39)
[2020-10-11 13:59] VITALS: BP 135/93
== END 2020-10-11 14:00 | disposition home or self-care (01) ==
LOC: ED 10:42
DX: R07.89 Other chest pain (principal); I71.2 Thoracic aortic aneurysm, without rupture; K21.9 Gastro-esophageal reflux disease without esophagitis; I10 Essential (primary) hypertension; Z79.82 Long term (current) use of aspirin
CPT/HCPCS: 36415; 71045; 71275; 80053; 83690; 83735; 83880; 84484; 85025; 85379; 85651; 93005; 99284; Q9967

== ENCOUNTER 2021-07-19 09:00 | Outpatient (CLI) | payer MEDICAID ==
--- NOTE | 2021-07-20 10:00 | Mammography Report ---
BILATERAL DIGITAL SCREENING MAMMOGRAM 3D/2D: 07/19/2021 CLINICAL: Routine screening. Comparison is made to exams dated: 04/30/2019 mammogram, 08/28/2016 mammogram, 06/17/2014 ultrasound, a nd 06/17/2014 mammogram - [facility]. There are scattered fibroglandular elements in both breasts. No significant masses, calcifications, or other findings are seen in either breast. There has been no significant interval change. IMPRESSION: NEGATIVE There is no mammographic evidence of malignancy. A 1 year screening mammogram is recommended. This exam was interpreted at Station ID: [id number]. NOTE: For mammograms, a report in lay terms will be sent to the patient. Approximately 15% of breast malignancies will not be visualized mammographically. In the management of a palpable breast mass, a negative mammogram must not discourage biopsy of a clinically suspicious lesion. Electronically Signed By: Thomas Wiseman M.D. ddp/penrad:07/19/2021 13:53:26 ACR BI-RADS Category 1: Negative 3341F PARENCHYMAL PATTERN: (A) - The breast(s) demonstrate(s) scattered fibroglandular densities. BI-RADS CATEGORY: (1) - 1 RECOMMENDATION: (ANNUAL) - Recommend routine annual screening mammography. [id number] 1 year screening LATERALITY: (B)
== END 2021-07-19 09:01 | disposition home or self-care (01) ==
LOC: DI.N 09:00
DX: Z12.31 Encounter for screening mammogram for malignant neoplasm of breast (principal)

== ENCOUNTER 2021-08-03 08:15 | Outpatient (CLI) | payer MEDICAID ==
[2021-08-03 12:01] LABS: BASOPHILS # (AUTO) 0.1 10^3/uL (0.0-0.1); BASOPHILS % (AUTO) 0.8 %; EOSINOPHILS # (AUTO) 0.2 10^3/uL (0.0-0.7); EOSINOPHILS % (AUTO) 3.8 %; HCT - HEMATOCRIT 45.9 % (37.0-47.0); HGB - HEMOGLOBIN 15.6 g/dL (12.0-16.0); LYMPHOCYTES # (AUTO) 1.8 10^3/uL (1.5-3.5); LYMPHOCYTES % (AUTO) 29.7 %; MEAN CORPUSCULAR HEMOGLOBIN 30.6 pg (27.0-31.0); MEAN CORPUSCULAR VOLUME 90.2 fL (81.0-99.0); MEAN PLATELET VOLUME 10.1 fL (7.9-10.8); MONOCYTES # (AUTO) 0.7 10^3/uL (0.0-1.0); MONOCYTES % (AUTO) 12.3 %; NEUTROPHILS # (AUTO) 3.2 10^3/uL (1.5-6.6); NEUTROPHILS % (AUTO) 53.2 %; PLT - PLATELET COUNT 336 10^3/uL (130-450); RED BLOOD COUNT 5.09 10^6/uL (4.20-5.40); RED CELL DISTRIBUTION WIDTH 13.4 % (12.0-15.0)
[2021-08-03 12:33] LABS: THYROID STIMULATING HORMONE 1.87 uIU/mL (0.34-5.60)
[2021-08-03 12:34] LABS: ALBUMIN 4.5 g/dL (3.2-5.5); ALBUMIN/GLOBULIN RATIO 1.3 (1.0-2.2); ALKALINE PHOSPHATASE 68 IU/L (42-121); ALT ALANINE AMINOTRANSFERASE 18 IU/L (10-60); AST ASPARTATE AMINOTRANSFERASE 18 IU/L (10-42); BILIRUBIN,TOTAL 1.1 mg/dL (0.2-1.0); BUN - BLOOD UREA NITROGEN 25 mg/dL (6-20); CALCIUM 10.1 mg/dL (8.5-10.3); CARBON DIOXIDE - CO2 28 mmol/L (21-32); CHLORIDE 99 mmol/L (101-111); CHOLESTEROL 204 mg/dL; CREATININE 0.8 mg/dL (0.4-1.0); GFR - MDRD 72 (>89); GLUCOSE 104 mg/dL (70-100); HDL CHOLESTEROL 104 mg/dL; LDL CHOLESTEROL,CALCULATED 91 mg/dL; LDL/HDL RATIO 0.9 (<4.4); POTASSIUM 4.4 mmol/L (3.5-5.0); SODIUM 137 mmol/L (135-145); TRIGLYCERIDES 46 mg/dL; VLDL CHOLESTEROL 9 mg/dL
== END 2021-08-03 08:16 | disposition home or self-care (01) ==
LOC: LAB.N 08:15
PROVIDERS: ATTEND Physician Assistant Medical
DX: Z00.00 Encounter for general adult medical examination without abnormal findings (principal)
CPT/HCPCS: 36415; 80048; 80053; 80061; 83721; 84443; 85025

== ENCOUNTER 2022-06-10 13:46 | Outpatient (CLI) | payer MEDICAID ==
--- NOTE | 2022-06-11 09:31 | MRI Report ---
PROCEDURE: KNEE WO - LT INDICATIONS: LEFT KNEE PAIN TECHNIQUE: Noncontrast sagittal PD fast spin echo and T2 fast spin echo with fat saturation, sagittal 3-D gradie nt sequence with fat saturation; coronal T1 spin echo and PD fast spin echo with fat saturation, and axial PD fast spin echo with fat saturation through the knee. COMPARISON: X-ray left knee, 03/11/2022. FINDINGS: Image quality: Excellent. Menisci: There is medial meniscal extrusion. There is nondisplaced horizontal tear in the posterior h orn the medial meniscus. Nondisplaced horizontal tear is also seen in the anterior and posterior horn of the lateral meniscus. An oblique tear is noted in the body of the lateral meniscus extending to t he intra-articular surface. The meniscal root ligaments appear intact. Cruciate ligaments: The anterior and posterior cruciate ligaments appear intact. Medial structures: There is grade 2 chronic partial tear/sprain of the medial collateral ligament. T he semimembranosus tendon and meniscocapsular junction appear intact. Visualized portions of the pes anserinus tendons appear normal. No abnormal bursal fluid. Lateral structures: The lateral collateral ligament and the biceps femoris tendon appear intact. Th e popliteus tendon appears normal. Iliotibial band appears normal. Anterior structures: The quadriceps and patellar tendons appear intact. Low-grade quadriceps tendini tis and patellar tendinitis. Patellar alignment is normal. No femoral trochlear dysplasia or ventra l trochlear prominence. No edema in the infrapatellar fat pad. Nonspecific prepatellar soft tissue edema. Bones and cartilage: No bone marrow contusions or fractures. There is tricompartment cartilage thinn ing and fibrillation, most pronounced in patellofemoral compartment. Mild red marrow conversion. Joint space: There is small knee joint effusion. Small Tapia's cyst. Normal appearing synovial plic ae are incidentally noted. IMPRESSION: 1. Medial meniscal extrusion and nondisplaced horizontal tear of the posterior horn of the medial men iscus. 2. Tear of the lateral meniscus involving anterior horn, posterior horn and body. 3. Chronic partial tear/sprain of MCL. 4. Chondromalacia patella. There is also cartilage thinning and fibrillation in the medial and latera l femorotibial compartment. 5. Small knee joint effusion. 6. A small Tapia's cyst. Reviewed by: Guille Ramsey MD on 06/11/2022 9:30 AM PST Approved by: Guille Ramsey MD on 06/11/2022 9:30 AM PST Station ID: [id number]
== END 2022-06-10 13:47 | disposition home or self-care (01) ==
LOC: DI 13:46
PROVIDERS: ATTEND Physician Assistant Medical
DX: S83.242A Other tear of medial meniscus, current injury, left knee, initial encounter (principal); S83.282A Other tear of lateral meniscus, current injury, left knee, initial encounter; S83.412A Sprain of medial collateral ligament of left knee, initial encounter; M22.42 Chondromalacia patellae, left knee; M25.462 Effusion, left knee; M71.22 Synovial cyst of popliteal space [Baker], left knee

== ENCOUNTER 2022-08-05 08:36 | Outpatient (CLI) | payer MEDICAID ==
[2022-08-05 12:04] LABS: BASOPHILS # (AUTO) 0.1 10^3/uL (0.0-0.1); BASOPHILS % (AUTO) 0.6 %; EOSINOPHILS # (AUTO) 0.3 10^3/uL (0.0-0.7); EOSINOPHILS % (AUTO) 3.3 %; HGB - HEMOGLOBIN 15.4 g/dL (12.0-16.0); LYMPHOCYTES # (AUTO) 1.9 10^3/uL (1.5-3.5); LYMPHOCYTES % (AUTO) 24.2 %; MEAN CORPUSCULAR HEMOGLOBIN 30.3 pg (27.0-31.0); MEAN CORPUSCULAR HGB CONC 32.8 g/dL (32.0-36.0); MEAN CORPUSCULAR VOLUME 92.5 fL (81.0-99.0); MEAN PLATELET VOLUME 10.1 fL (7.9-10.8); MONOCYTES # (AUTO) 0.9 10^3/uL (0.0-1.0); MONOCYTES % (AUTO) 11.7 %; NEUTROPHILS # (AUTO) 4.7 10^3/uL (1.5-6.6); NEUTROPHILS % (AUTO) 59.8 %; PLT - PLATELET COUNT 379 10^3/uL (130-450); RED BLOOD COUNT 5.08 10^6/uL (4.20-5.40); RED CELL DISTRIBUTION WIDTH 13.6 % (12.0-15.0); WHITE BLOOD COUNT 7.9 x10^3/uL (4.8-10.8)
[2022-08-05 12:28] LABS: THYROID STIMULATING HORMONE 2.42 uIU/mL (0.34-5.60)
[2022-08-05 12:38] LABS: ALBUMIN 4.4 g/dL (3.2-5.5); ALBUMIN/GLOBULIN RATIO 1.3 (1.0-2.2); ALKALINE PHOSPHATASE 54 IU/L (42-121); ALT ALANINE AMINOTRANSFERASE 17 IU/L (10-60); AST ASPARTATE AMINOTRANSFERASE 13 IU/L (10-42); BILIRUBIN,TOTAL 1.2 mg/dL (0.2-1.0); BUN - BLOOD UREA NITROGEN 20 mg/dL (6-20); CALCIUM 10.6 mg/dL (8.5-10.3); CARBON DIOXIDE - CO2 28 mmol/L (21-32); CHLORIDE 100 mmol/L (101-111); CHOL/HDL RATIO 2.2 (<4.4); CHOLESTEROL 203 mg/dL; CREATININE 0.8 mg/dL (0.4-1.0); GFR - MDRD 72 (>89); GLUCOSE 105 mg/dL (70-100); HDL CHOLESTEROL 92 mg/dL; LDL CHOLESTEROL,CALCULATED 99 mg/dL; LDL/HDL RATIO 1.1 (<4.4); POTASSIUM 4.2 mmol/L (3.5-5.0); SODIUM 138 mmol/L (135-145); TOTAL PROTEIN 7.8 g/dL (6.7-8.2); TRIGLYCERIDES 60 mg/dL; VLDL CHOLESTEROL 12 mg/dL
== END 2022-08-05 08:37 | disposition home or self-care (01) ==
LOC: LAB.N 08:36
PROVIDERS: ATTEND Physician Assistant Medical
DX: Z00.00 Encounter for general adult medical examination without abnormal findings (principal)
CPT/HCPCS: 36415; 80053; 80061; 83721; 84443; 85025

== ENCOUNTER 2022-08-13 08:56 | Outpatient (CLI) | payer MEDICAID ==
--- NOTE | 2022-08-13 12:22 | Mammography Report ---
BILATERAL DIGITAL SCREENING MAMMOGRAM 3D/2D: 08/13/2022 CLINICAL: Routine screening. Comparison is made to exams dated: 07/19/2021 mammogram, 04/30/2019 mammogram, 08/28/2016 mammogram, ultrasound, and 06/17/2014 mammogram - [facility]. There are scattered areas of fibroglandular density in both breasts (category b / 25%-50% glandular t issue). No significant masses, calcifications, or other findings are seen in either breast. There has been no significant interval change. IMPRESSION: NEGATIVE There is no mammographic evidence of malignancy. A 1 year screening mammogram is recommended. Based on the Tyrer Cuzick model (a risk assessment model) the patients lifetime risk is 5.3% and her 10 year risk is 2.4%. According to the ACR, ACS, and NCCN guidelines, an annual breast MRI exam vladimir g with mammogram is recommended if the patients lifetime risk is 20% or greater. This exam was interpreted at Station ID: [id number]. NOTE: For mammograms, a report in lay terms will be sent to the patient. Approximately 15% of breast malignancies will not be visualized mammographically. In the management of a palpable breast mass, a negative mammogram must not discourage biopsy of a clinically suspicious lesion. Electronically Signed By: Christophe Weber M.D., jr/chaka:08/13/2022 09:40:46 ACR BI-RADS Category 1: Negative 3341F PARENCHYMAL PATTERN: (A) - The breast(s) demonstrate(s) scattered fibroglandular densities. BI-RADS CATEGORY: (1) - 1 RECOMMENDATION: (ANNUAL) - Recommend routine annual screening mammography. [id number] 1 year screening LATERALITY: (B)
== END 2022-08-13 08:57 | disposition home or self-care (01) ==
LOC: DI.N 08:56
DX: Z12.31 Encounter for screening mammogram for malignant neoplasm of breast (principal)

== ENCOUNTER 2023-02-18 08:00 | Outpatient (CLI) | payer MEDICARE, OTHER | END 2023-02-18 23:59 | disposition home or self-care (01) | LOC: LAB.N 08:00 | PROVIDERS: ATTEND Specialist | DX: R07.0 Pain in throat (principal); Z20.822 Contact with and (suspected) exposure to COVID-19 ==

== ENCOUNTER 2023-09-22 07:57 | Outpatient (CLI) | payer OTHER, MEDICARE ==
[2023-09-22 12:00] LABS: BASOPHILS % (AUTO) 0.6 %; EOSINOPHILS # (AUTO) 0.2 10^3/uL (0.0-0.7); EOSINOPHILS % (AUTO) 4.7 %; HCT - HEMATOCRIT 41.9 % (37.0-47.0); HGB - HEMOGLOBIN 13.9 g/dL (12.0-16.0); LYMPHOCYTES # (AUTO) 1.6 10^3/uL (1.5-3.5); LYMPHOCYTES % (AUTO) 30.8 %; MEAN CORPUSCULAR HGB CONC 33.2 g/dL (32.0-36.0); MEAN CORPUSCULAR VOLUME 93.3 fL (81.0-99.0); MEAN PLATELET VOLUME 9.8 fL (7.9-10.8); MONOCYTES # (AUTO) 0.7 10^3/uL (0.0-1.0); MONOCYTES % (AUTO) 13.6 %; NEUTROPHILS # (AUTO) 2.6 10^3/uL (1.5-6.6); NEUTROPHILS % (AUTO) 50.3 %; PLT - PLATELET COUNT 335 10^3/uL (130-450); RED BLOOD COUNT 4.49 10^6/uL (4.20-5.40); RED CELL DISTRIBUTION WIDTH 13.6 % (12.0-15.0); WHITE BLOOD COUNT 5.1 x10^3/uL (4.8-10.8)
[2023-09-22 12:28] LABS: ESTIMATED AVERAGE GLUCOSE 94 mg/dL (70-100); HEMOGLOBIN A1c% 4.9 % (4.27-6.07)
[2023-09-22 12:31] LABS: ALBUMIN 4.4 g/dL (3.2-5.5); ALBUMIN/GLOBULIN RATIO 1.6 (1.0-2.2); ALKALINE PHOSPHATASE 52 IU/L (42-121); ALT ALANINE AMINOTRANSFERASE 12 IU/L (10-60); AST ASPARTATE AMINOTRANSFERASE 14 IU/L (10-42); BILIRUBIN,TOTAL 0.6 mg/dL (0.2-1.0); BUN - BLOOD UREA NITROGEN 18 mg/dL (6-20); CALCIUM 10.3 mg/dL (8.5-10.3); CARBON DIOXIDE - CO2 28 mmol/L (21-32); CHLORIDE 97 mmol/L (101-111); CHOL/HDL RATIO 2.1 (<4.4); CHOLESTEROL 175 mg/dL; CREATININE 0.8 mg/dL (0.6-1.3); GFR - MDRD 72 (>89); GLUCOSE 83 mg/dL (74-104); HDL CHOLESTEROL 82 mg/dL; LDL CHOLESTEROL,CALCULATED 77 mg/dL; LDL/HDL RATIO 0.9 (<4.4); POTASSIUM 3.9 mmol/L (3.5-4.5); SODIUM 132 mmol/L (135-145); TOTAL PROTEIN 7.1 g/dL (6.4-8.9); TRIGLYCERIDES 79 mg/dL (48-352); VLDL CHOLESTEROL 16 mg/dL
== END 2023-09-22 07:58 | disposition home or self-care (01) ==
LOC: LAB.N 07:57
PROVIDERS: ATTEND Physician Assistant Medical
DX: R73.9 Hyperglycemia, unspecified (principal); I10 Essential (primary) hypertension; K21.9 Gastro-esophageal reflux disease without esophagitis
CPT/HCPCS: 36415; 80053; 80061; 83036; 83721; 85025